=== PATIENT | male | born 1995 | race Caucasian/White ===

== ENCOUNTER 2017-12-07 07:11 | Day surgery (SDC) | payer OTHER, SELFPAY ==
[2017-12-07] VITALS (8 sets, daily range): BP systolic 110–132; BP diastolic 42–83; PULSE 62–85; RESP 18–20; TEMP 36.4–36.8; O2SAT 98–100; BMI 28.8
--- NOTE | 2017-12-07 08:36 | PCM.OPRPT ---
Problem List (1) Bloody stool Status: Acute Report of Operation Date of Procedure: 12/07/17 Pre-Operative Diagnosis: Bloody stools Post-Operative Diagnosis: 1. Anal fissure. 2. Normal colonoscopy Surgery/Procedure Performed:: Colonoscopy Specimen's removed: None Description of Procedure: The major risks and benefits associated with the procedure were explained to the patient in detail. The patient verbalized understanding and agreement with the same. The patient was brought to the endoscopy suite. After adequate sedation was achieved, the patient was placed in the left lateral decubitus position and a digital rectal exam was performed. The patient did have a small anal fissure anteriorly. This examination was within normal limits. A well-lubricated colonoscope was then inserted into the rectum and advanced under direct visualization to the level of the cecum. The bowel prep was good. The cecum was identified by both visual and anatomic landmarks. A photograph was taken of the end of the cecum. The scope was then fully withdrawn while examining the color, texture, anatomy and integrity of the mucosa from the cecum to the anal canal. The findings were consistent with normal colonic mucosa. Over 6 minutes were taken to examine the colonic mucosa. Upon reaching the rectum the scope was retroflexed to examine the distal rectal vault. The scope was then straightened and was completely retrieved upon exiting the anal canal and the procedure was terminated. The patient was then transferred to the recovery room in stable condition. Recommendations for follow up: Age 48
== END 2017-12-07 09:13 | disposition home or self-care (01) ==
LOC: EN 07:12 → AC 07:14
PROVIDERS: Family Provider Family Medicine; PCP Family Medicine; Visit Provider Surgery
PROC: 0DJD8ZZ Inspection of Lower Intestinal Tract, Via Natural or Artificial Opening Endoscopic (ICD-10-PCS; CPT 45378; principal; 2017-12-07 08:10)
DX: K60.2 Anal fissure, unspecified (principal); I10 Essential (primary) hypertension
CPT/HCPCS: 45378; J7120

== ENCOUNTER → 2024-04-11 | Outpatient (CLI) | payer OTHER, SELFPAY ==
--- NOTE | 2024-04-11 11:24 | RAD_ITS ---
INDICATION: chronic lower back pain since 2015 -- now having radicular pain down R leg EXAMINATION/TECHNIQUE: X-RAY - XR Spine Lumbar Comp W/ Bending Min 6 Views COMPARISON: None. FINDINGS: The vertebral bodies are normal in height. No definite fracture demonstrated. No subluxation. No paravertebral soft tissue mass identified. No subluxation with flexion or extension. RAD/L/S Spine Comp/w Bending Views IMPRESSION: No evidence of fracture or subluxation. Unremarkable study. MRI may be helpful for further evaluation. Electronically Signed: Nerissa Pitt MD at 8:07 EDT ,
--- NOTE | 2024-04-11 11:24 | RAD_ITS ---
INDICATION: knee pain EXAMINATION/TECHNIQUE: X-RAY - RIGHT XR Knee 3 Views 3 VIEWS COMPARISON: FINDINGS: BONES: No fracture demonstrated. JOINTS: No dislocation. SOFT TISSUES: Mild soft tissue swelling anteriorly infrapatellar adjacent with a tiny calcific fragment adjacent to the anterior tibial tubercle. RAD/Knee 3 Views IMPRESSION: Infrapatellar soft tissue swelling with tiny density possible calcific tendinitis. No evidence of fracture. Electronically Signed: Nerissa Pitt MD at 8:04 EDT ,
== END | disposition home or self-care (01) ==
LOC: RAD 11:23
PROVIDERS: PCP Nurse Practitioner; Referring Provider Nurse Practitioner; Visit Provider Nurse Practitioner
DX: M25.561 Pain in right knee (principal); M54.16 Radiculopathy, lumbar region
CPT/HCPCS: 72114; 73562